=== PATIENT | male | born 1980 | race Caucasian/White ===

== ENCOUNTER 2024-09-19 12:37 | Emergency (ER) | payer SELFPAY ==
[2024-09-19 13:04] VITALS: BP 143/95; PULSE 100; TEMP 36.9; O2SAT 99
--- NOTE | 2024-09-19 13:21 | ED_ITS ---
HPI - Ear Problem General Chief complaint: Ear Stated complaint: PLUGGED EAR Time Seen by Provider: 09/19/24 13:13 Source: patient Mode of arrival: walk-in History of Present Illness HPI Narrative: Patient is a 43-year-old male who presents to the emergency department for decreased hearing to the right ear. He states the ear feels plugged. He states at the beginning of the course of his illness he did have yellow sinus drainage but he does not have any further upper respiratory symptoms, fevers or drainage from the right ear. No medications prior to arrival. Related Data Home Medications ?Medication ?Instructions ?Recorded ?Confirmed omeprazole magnesium 10 mg oral 10 mg PO DAILY 09/19/24 09/19/24 suspension,delayed release (Prilosec) Previous Rx's ?Medication ?Instructions ?Recorded cefdinir 300 mg capsule 300 mg PO BID 10 days #20 caps 09/19/24 cetirizine 5 mg-pseudoephedrine ER 1 tab PO BID #10 tabs 09/19/24 120 mg tablet,extended release,12hr (Zyrtec-D) Allergies Allergy/AdvReac Type Severity Reaction Status Date / Time Penicillins Allergy Unknown Verified 09/19/24 13:04 Review of Systems ROS Constitutional Denies: fever or chills Ears, nose, mouth, and throat Reports: change in hearing and nasal congestion; Denies: throat pain or ear discharge Cardiovascular Denies: chest pain Respiratory Denies: shortness of breath or cough Gastrointestinal Denies: nausea or vomiting Musculoskeletal Denies: back pain Integumentary/Breast Denies: rash Neurological Denies: numbness in extremities or weakness in extremities Hematologic/Lymphatic Denies: easy bruising or easy bleeding PFSH PFS Social History Little interest or pleasure in doing things: not at all Feeling down, depressed, or hopeless: not at all Exam Narrative Exam Narrative: Gen.: Awake, alert, in no distress Head: Normocephalic, atraumatic ENT: Moist mucous membranes, left TM is clear, right TM is fully visualized flat and erythematous Respiratory: No respiratory distress Extremities: Moves extremities equally Psych: Normal mood and affect Neuro: No focal neuro deficit Skin: Warm, dry, intact Constitutional Vital Signs, click to edit/add: Last Vital Signs Temp 98.5 F 09/19/24 13:04 Pulse 100 H 09/19/24 13:04 Resp 16 09/19/24 13:04 BP 143/95 H 09/19/24 13:04 Pulse Ox 99 09/19/24 13:04 O2 Del Method Room Air 09/19/24 13:04 Course Vital Signs Vital signs: Vital Signs Temperature 98.5 F 09/19/24 13:04 Pulse Rate 100 H 09/19/24 13:04 Respiratory Rate 16 09/19/24 13:04 Blood Pressure 143/95 H 09/19/24 13:04 Pulse Oximetry 99 09/19/24 13:04 Oxygen Delivery Method Room Air 09/19/24 13:04 Temperature 98.5 F 09/19/24 13:04 Pulse Rate 100 H 09/19/24 13:04 Respiratory Rate 16 09/19/24 13:04 Blood Pressure 143/95 H 09/19/24 13:04 Pulse Oximetry 99 09/19/24 13:04 Oxygen Delivery Method Room Air 09/19/24 13:04 Medical Decision Making MDM Narrative Medical decision making narrative: Exam is consistent with right otitis media and the patient is placed on a decongestant and antibiotic. Follow-up with PCP and return to the ER if sy mptoms change or worsen SUPERVISED APC VISIT, PHYSICIAN ATTESTATION: Based on the medical record the care appears appropriate. ? Medical Records Medical records reviewed: Yes I reviewed the patient's medical records Discharge Plan Discharge Chief Complaint: Ear Clinical Impression: Otitis media Patient Disposition: Home, Self-Care Time of Disposition Decision: 13:19 Condition: Good Prescriptions / Home Meds: New cetirizine-pseudoephedrine [Zyrtec-D] 5-120 mg tablet extended release 12 hr 1 tab PO BID Qty: 10 0RF cefdinir 300 mg capsule 300 mg PO BID 10 Days Qty: 20 0RF No Action Prilosec 10 mg susp,delayed release for recon 10 mg PO DAILY Print Language: [place] Instructions: Ear Infection (ED) Referrals: Physician,Non-Staff, MD [Primary Care Provider] - 1 week
== END 2024-09-19 13:33 | disposition home or self-care (01) ==
PROVIDERS: Emergency Provider Emergency Medicine
DX: H66.91 Otitis media, unspecified, right ear (principal)
CPT/HCPCS: 99283